=== PATIENT | male | born 1985 | race African-American/Black ===

== ENCOUNTER 2017-07-02 17:30 | Emergency (ER) | payer OTHER ==
[~2017-07-02] VITALS: Ht 172.7 cm; Wt 75.0 kg
[2017-07-02 17:32] VITALS: BP 144/99
== END 2017-07-02 19:47 | disposition home or self-care (01) ==
LOC: ER 18:27
DX: M54.2 Cervicalgia (principal); M25.511 Pain in right shoulder; V49.9XXA Car occupant (driver) (passenger) injured in unspecified traffic accident, initial encounter; Y93.9 Activity, unspecified; Y92.410 Unspecified street and highway as the place of occurrence of the external cause
CPT/HCPCS: 99283

== ENCOUNTER 2019-05-13 12:01 | Emergency (ER) | payer SELFPAY ==
[~2019-05-13] VITALS: Ht 167.6 cm; Wt 76.0 kg
[2019-05-13 12:48] VITALS: BP 154/85
[2019-05-13] MEDS ORDERED: KETOROLAC 60MG/2ML VIAL IM ONE (16:15)
== END 2019-05-13 16:47 | disposition home or self-care (01) ==
LOC: ER 12:01
DX: M54.5 Low back pain (principal)
CPT/HCPCS: 96372; 99283; J1885